=== PATIENT | female | born 2005 | race Hispanic/Latino ===

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

== ENCOUNTER 2023-08-04 14:58 | Emergency (ER) | payer BC, OTHER ==
[2023-08-04] MEDS ORDERED: Acetaminophen 500 MG TAB ONE (16:27)
[2023-08-04] MEDS ORDERED: Amoxicillin/Potassium Clav 875 MG TAB ONE (16:27)
== END 2023-08-04 17:58 | disposition home or self-care (01) ==
LOC: CSHERS 14:58
DX: S00.93XA Contusion of unspecified part of head, initial encounter (principal); Y04.1XXA Assault by human bite, initial encounter
CPT/HCPCS: 70450

== ENCOUNTER 2024-03-09 16:41 | Outpatient (CLI) | payer BC | END 2024-03-09 16:42 | disposition home or self-care (01) | LOC: CSHRAD 16:41 | PROVIDERS: ATTEND Student in an Organized Health Care Education/Training Program | DX: R06.02 Shortness of breath (principal) | CPT/HCPCS: 71046 ==

== ENCOUNTER 2025-08-22 15:57 | Emergency (ER) | payer BC, OTHER ==
[2025-08-22] MEDS ORDERED: Ketorolac Tromethamine 30 MG (1 mL) VIAL ONE (16:31)
[2025-08-22 16:38] LABS: #Basophils Less than 0.03 10x3/uL (0.0-0.2); #Eosinophils 0.11 10x3/uL (0.0-0.5); #Monocytes 0.36 10x3/uL (0.0-1.1); #Neutrophils 3.12 10x3/uL (1.5-8.4); %Basophils 0.4 % (0.0-2.0); %Eosinophils 2.2 % (0.0-6.0); %Lymphocytes 29.0 % (18.0-47.0); %Monocytes 7.1 % (0.0-10.0); %Neutrophils 61.1 % (40.0-75.0); Hematocrit 32.0 % (34.9-44.5); Hemoglobin 9.6 g/dL (12.0-15.5); Mean Corpuscular Hemoglobin 21.3 pg (27.0-33.0); Mean Corpuscular Volume 71.0 fL (81.6-98.3); Platelet Count 277 10x3/uL (150-450); Red Blood Cell (RBC) Count 4.51 10x6/uL (3.90-5.03); White Blood Cell (WBC) Count 5.10 10x3/uL (3.5-10.5)
[2025-08-22 16:57] LABS: ALT (SGPT) 23 U/L (Less than 34); AST (SGOT) 23 U/L (11-34); Albumin 4.2 g/dL (3.1-4.5); Alkaline Phosphatase 50 U/L (40-110); Anion Gap 12 mmol/L (10-20); BUN (Urea Nitrogen) 10 mg/dL (7.0-18.7); Bilirubin, Total 0.3 mg/dL (0.3-1.2); Calc. Creatinine Clearance 0 mL/min (70-130); Calcium 9.1 mg/dL (7.8-10.44); Carbon Dioxide 24 mmol/L (22-29); Chloride 109 mmol/L (98-107); Globulin 3.7 g/dL (2.4-3.5); Glucose 107 mg/dL (70-105); Magnesium 1.9 mg/dL (1.6-2.6); Potassium 3.7 mmol/L (3.5-5.1); Sodium 141 mmol/L (136-145)
[2025-08-22 16:59] LABS: BHCG - Serum Negative (NEGATIVE); Pregs Control Background? CLEAR/WHITE (CLR/WHITE); Pregs Control Bar Appear? YES (CONTROL BAR)
[2025-08-22 17:05] LABS: Anisocytosis SLIGHT = 6-15 cells (100X) (0-5/hpf); MDiff Complete? YES; Microcytosis SLIGHT = 6-15 cells (100X) (0-5/hpf); Platelet Adequacy Comment Appears Adequate; Polychromasia SLIGHT = 2-3 cells (100X) (0-2/hpf)
[2025-08-22 17:06] LABS: Glucose, Urine (Dipstick) Normal (Negative); Leukocyte 25 (Negative); Protein, Urine (Dipstick) 30 mg/dl (Neg-Trace); Specific Gravity, Urine 1.015 (1.005-1.030)
[2025-08-22 17:28] LABS: CAUTI Indications for Culture Pelvic or flank pain; RBC/HPF Greater than 50 HPF (0-3); WBC/HPF 0-3 HPF (0-3)
[2025-08-22 17:29] LABS: Bacteria/HPF Rare-Few HPF (None Seen)
[2025-08-22 17:30] LABS: Urine Culture Reflex No No
== END 2025-08-22 18:06 | disposition home or self-care (01) ==
LOC: CSHERS 15:57
DX: N92.0 Excessive and frequent menstruation with regular cycle (principal); R53.83 Other fatigue; D64.9 Anemia, unspecified; Z75.3 Unavailability and inaccessibility of health-care facilities
CPT/HCPCS: 36415; 80053; 81001; 83735; 84703; 85025; 87428; 93005; 96372; 99284; J1885